=== PATIENT | male | born 1960 | race Two or more races ===

== ENCOUNTER 2020-04-08 22:35 | Emergency (ER) | payer OTHER ==
[~2020-04-08] VITALS: Ht 170.2 cm; Wt 90.4 kg
--- NOTE | 2020-04-08 23:23 | NUR ---
THIS PT CAME TO THE ED FOR MULTIPLE COMPLAINTS ALL THAT OCCUR INTERMITTENTLY, NOT ALWAYS TOGETHER, ALL STARTING BETWEEN 1-3 WEEKS AGO, INCLUDING "FEELING LIKE HE'S DRUNK" FEELING "ELECTRICTY" AND PAIN IN HIS HEART THAT RADIATES TO HIS BACK AND ARM, AND TINGLING IN HIS ARMS AND LEGS. NO CURRENT SIGNS OF DISTRESS. WILL CONTINUE TO MONITOR AND WATCH FOR ORDERS.
--- NOTE | 2020-04-08 23:28 | NUR ---
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
--- NOTE | 2020-04-08 23:30 | NUR ---
ERP TO BEDSIDE. FARA SOTELO TO BEDSIDE TO TRANSLATE.
[2020-04-08 23:58] LABS: BASOPHILS # (AUTO) 0.04 x10^3/uL (0-0.1); BASOPHILS % (AUTO) 1 % (0-1); EOSINOPHILS # (AUTO) 0.22 x10^3/uL (0-0.4); EOSINOPHILS % (AUTO) 4 % (1-7); LYMPHOCYTES # (AUTO) 2.77 x10^3/uL (1-3.4); LYMPHOCYTES % (AUTO) 46 % (22-44); MD NO; MEAN CORPUSCULAR HGB CONC 33.4 g/dL (33.2-36.2); MEAN CORPUSCULAR VOLUME 83.8 fL (81-97); MEAN PLATELET VOLUME 6.8 fL (7.4-10.4); MONOCYTES # (AUTO) 0.52 x10^3/uL (0.2-0.8); MONOCYTES % (AUTO) 9 % (2-9); NEUTROPHILS # (AUTO) 2.51 x10^3/uL (1.8-6.8); NEUTROPHILS % (AUTO) 42 % (42-75); PLATELET COUNT 214 x10^3/uL (130-400); RED BLOOD COUNT 5.07 x10^6/uL (4.38-5.82); RED CELL DISTRIBUTION WIDTH 14.6 % (9.4-14.8)
[2020-04-09 00:06] LABS: ALANINE AMINOTRANSFERASE 28 U/L (12-78); ANION GAP 5 mmol/L (5-15); CALCIUM 8.5 mg/dL (8.5-10.1); CHLORIDE 109 mmol/L (98-107); CREATININE 0.88 mg/dL (0.7-1.3)
--- NOTE | 2020-04-09 00:06 | NUR ---
PT LAYING IN BED, WATCHING TV, NO SIGNS OF DISTRESS, CALL LIGHT WITHIN REACH, WILL CONTINUE TO MONITOR.
[2020-04-09 00:11] LABS: ALKALINE PHOSPHATASE 65 U/L (45-117); BILIRUBIN,TOTAL 0.4 mg/dL (0.2-1.0); TOTAL PROTEIN 7.6 g/dL (6.4-8.2); TROPONIN I < 0.015 ng/mL (0.000-0.045)
[2020-04-09 00:42] VITALS: BP 129/42
== END 2020-04-09 00:45 | disposition home or self-care (01) ==
LOC: ED 04-09 00:39
DX: R07.9 Chest pain, unspecified (principal); B34.9 Viral infection, unspecified; R94.31 Abnormal electrocardiogram [ECG] [EKG]; H92.03 Otalgia, bilateral; I10 Essential (primary) hypertension; K21.9 Gastro-esophageal reflux disease without esophagitis
CPT/HCPCS: 36415; 71045; 80053; 84484; 85025; 93005; 99285